=== PATIENT | female | born 2005 | race Two or more races ===

== ENCOUNTER 2025-02-13 13:19 | Emergency (ER) | payer BC, OTHER ==
[~2025-02-13] VITALS: Ht 160 cm; Wt 65.6 kg
[2025-02-13 13:24] VITALS: TEMP 98.4
[2025-02-13] MEDS ORDERED: METO-281 PO (13:52)
[2025-02-13] MEDS: METOCLOPRAMIDE HCL 10 MG TAB PO ONE (14:00)
--- NOTE | 2025-02-13 14:01 | ED.PDOC ---
GI ASSESSMENT HPI Comments This is a 19 year-old female, who is X4 months , presents to the ED with a chief complaint of nausea for X9 weeks. Patient reports severe nausea to where she cant eat a full meal at moments. Patient has no further complaints at this time and otherwise denies further associated symptoms of diarrhea, back pain, fever, chills, fatigue, or general weakness. Chief Complaint: Nausea/Vomiting Time Seen by MD: 13:40 Reviewed Notes: Nurses Notes, Medications, Allergies Allergies: Coded Allergies: NO KNOWN ALLERGIES (Unverified , 02/13/25) Home Meds Active Scripts Nitrofurantoin Monohydrate Mac (Macrobid) 100 Mg Cap, 100 MG PO BID for 6 Days, #14 CAP Prov:MERLINE PEREYRA MD 02/13/25 Metoclopramide Hcl (Reglan) 10 Mg Tab, 10 MG PO Q8HP PRN for 10 Days, #30 TAB Prov:MERLINE PEREYRA MD 02/13/25 Information Source: Patient Mode of Arrival: Ambulatory Duration: Since onset Severity: Moderate Associated sign and symptoms: Nausea, Other ( ) Past Medical History PAST MEDICAL HISTORY: Denies Surgical History: Denies all surgeries [employer] History: No Pertinent [employer] History Family History Family History: Reviewed,noncontributory to illness, No family hx of Cancer, No family hx of DM, No family hx of Heart felice, No family hx of HTN, No family hx ofKidney felice, No family hx of Liver felice, No family hx of Lung felice, No family hx of Stroke Social History Smoker: Non-Smoker Alcohol: Denies ETOH Use Drugs: Denies Drug Use Lives In: Home Constitutional: denies: chills, diaphoresis, fatigue, fever, malaise, sweats, weakness, others EENTM: denies: blurred vision, double vision, ear bleeding, ear discharge, ear drainage, ear pain, ear ringing, eye pain, eye redness, hearing loss, mouth pain, mouth swelling, nasal discharge, nose bleeding, nose congestion, nose pain, photophobia, tearing, throat pain, throat swelling, voice changes, others Respiratory: denies: cough, hemoptysis, orthopnea, SOB at rest, shortness of breath, SOB with excertion, stridor, wheezing, others Cardiovascular: denies: chest pain, dizzy spells, diaphoresis, Dyspnea on exertion, edema, irregular heart beat, left arm pain, lightheadedness, palpitations, PND, syncope, others Gastrointestinal: reports: nausea; denies: abdomen distended, abdominal pain, blood streaked bowels, constipated, diarrhea, dysphagia, difficulty swallowing, hematemesis, melena, poor appetite, poor fluid intake, rectal bleeding, rectal pain, vomiting, others Genitourinary: reports: ; denies: abnormal vagina bleeding, burning, dyspareunia, dysuria, flank pain, frequency, hematuria, incontinence, pain, vagina discharge, urgency, others Neurological: denies: dizziness, fainting, headache, left sided numbness, left sided weakness, numbness, paresthesia, pre-existing deficit, right sided numbness, right sided weakness, seizure, speech problems, tingling, tremors, weakness, others Musculoskeletal: denies: back pain, gout, joint pain, joint swelling, muscle pain, muscle stiffness, neck pain, others Integumetry: denies: bruises, change in color, change in hair/nails, dryness, laceration, lesions, lumps, rash, wounds, others Allergic/Immunocompromised: denies: Difficulty Healing, Frequent Infections, Hives, Itching, others Hematologic/Lymphatic: denies: anemia, blood clots, easy bleeding, easy bruising, swollen glands, others Endocrine: denies: excessive hunger, excessive sweating, excessive thirst, excessive urination, flushing, intolerance to cold, intolerance to heat, unexplained weight gain, unexplained weight loss, others Psychiatric: denies: anxiety, bipolar disorder, depression, hopeless, panic disorder, schizophrenia, sleepless, suicidal, others All Other Systems: Reviewed and Negative Physical Exam Exam Comments Patient is X9 weeks General Appearance: No Apparent Distress HEENT: Normal ENT Inspection, Pharynx Normal, TMs Normal Neck: Full Range of Motion, Non-Tender, Normal, Normal Inspection Respiratory: Chest Non-Tender, Lungs Clear, No Accessory Muscle Use, No Respiratory Distress, Normal Breath Sounds Cardiovascular: No Edema, No JVD, No Murmur, No Gallop, Normal Peripheral Pulses, Regular Rate/Rhythm Breast Exam: Deferred Gastrointestinal: Non Tender, No Pulsatile Mass, Normal Bowel Sounds, Other (Gravid uterus) Genitalia: Deferred Pelvic: Deferred Rectal: Deferred Extremities: No calf tenderness, Normal capillary refill, Normal inspection, Normal range of motion, Non-tender, No pedal edema Musculoskeletal : Apperance: Normal Neurologic: Alert, mold capper helper II-XII nml as Tested, No Motor Deficits, Normal Affect, Normal Mood, No Sensory Deficits Cerebellar Function: Normal Reflexes: Normal Skin: Dry, Normal Color, Warm Lymphatic: No Adenopathy Was a procedure done? Was a procedure done?: No GI differential Dx Differential Diagnosis: Constipation, Gastroenteritis, Dehydration, Electrolyte Imbalance, Food Poisoning, , Bacterial, Parasitic, Viral X-Ray, Labs, Meds, VS Vital Signs Date Time Temp Pulse Resp B/P (MAP) Pulse Ox O2 Delivery O2 Flow Rate FiO2 02/13/25 15:23 85 16 124/42 (69) 96 02/13/25 15:23 85 16 96 Ambu-Bag 02/13/25 13:24 98.4 96 16 115/54 97 98.4 Lab Test 02/13/25 13:30 Range/Units Urine Color Yellow Yellow Urine Clarity Turbid H Clear Urine pH 6.0 5.0-9.0 Urine Specific Linch 1.026 1.001-1.035 Urine Protein Trace H Negative Urine Ketones Negative Negative Urine Blood Negative Negative /uL Urine Nitrite Negative Negative Urine Bilirubin Negative Negative Urine Urobilinogen Normal Negative mg/dL Urine Leukocyte Esterase 2+ Negative /uL Urine RBC 5 0 - 4 /hpf Urine Microscopic WBC 10 H 0-5 /HPF Urine Squamous Epithelial Cells Many <5 /hpf Urine Bacteria None seen None Seen /hpf Urine Mucus Few None Seen Urine Glucose Normal Normal mg/dL Current Medications Medications (Trade) Dose Ordered Sig/Margaret Route Start Time Stop Time Status Last Admin Metoclopramide HCl (Reglan Tablet) 10 mg ONCE ONCE PO 02/13/25 14:00 02/13/25 14:01 DC 02/13/25 14:00 At this time the patient was given Reglan 10 mg p.o. The urine test is positive for UTI The patient was given a prescription of Macrobid The patient will return to the emergency department's condition worsens We did call Dr. Burkett and she is going to recommend that the patient receive Reglan as a prescription The patient will follow up with her own OBGYN. Time of 1ST Reevaluation: 15:49 Reevaluation 1ST: Improved Patient Education/Counseling: Diagnosis, Treatment, Prognosis, Need For Follow Up Family Education/Counseling: No Family Present SEPSIS Sepsis Screen Date sepsis recognized/suspect: Feb 13, 2025 Time Sepsis recognized/suspect: 1324 Recent Procedure: No On Antibiotic Therapy: No Respiratory Rate >20: No Heart Rate >90: Yes Temp<36 C (96.8 F) or >38.3 C: No SBP <90 or MAP <65 mmHG: No New Acute Mental Status Change: No Is the patient on CPAP, BIPAP,: No Vital Signs Date Time Temp Pulse Resp B/P (MAP) Pulse Ox O2 Delivery O2 Flow Rate FiO2 02/13/25 15:23 85 16 124/42 (69) 96 02/13/25 15:23 85 16 96 Ambu-Bag 02/13/25 13:24 98.4 96 16 115/54 97 98.4 Medications Medications Dose Ordered Sig/Margaret Route Start Time Stop Time Status Last Admin Dose Admin Metoclopramide HCl 10 mg ONCE ONCE PO 02/13/25 14:00 02/13/25 14:01 DC 02/13/25 14:00 Departure 1 Departure Time of Disposition: 15:49 Impression: Primary Impression: UTI in Qualified Codes: O23.40 - Unspecified infection of urinary tract in , unspecified trimester Additional Impression: Hyperemesis of Disposition: 01 HOME / SELF CARE / HOMELESS Condition: Stable e-Prescriptions Nitrofurantoin Monohydrate Mac (Macrobid) 100 Mg Cap 100 MG PO BID for 6 Days, #14 CAP Prov: MERLINE PEREYRA MD 02/13/25 Metoclopramide Hcl (Reglan) 10 Mg Tab 10 MG PO Q8HP PRN for 10 Days, #30 TAB Prov: MERLINE PEREYRA MD 02/13/25 Discharged With: Self Critical Care Note Critical Care Time?: No Stability Stability form required: No Heart Score Heart Score: Heart Score Response (Comments) Value History N/A 0 EKG N/A 0 Age N/A 0 Risk Factors N/A 0 Troponin N/A 0 Total 0 I personally scribed for MERLINE PEREYRA MD ([email or web address]) on 02/13/25 at 14:01. Electronically submitted by Ciera Alonso ([email or web address]). MERLINE PEREYRA MD Feb 13, 2025 14:01
[2025-02-13 14:31] LABS: Urine Protein, UAD TRACE (Negative)
[2025-02-13 15:23] VITALS: BP 124/42; PULSE 85; RESP 16; O2SAT 96
[2025-02-13] MEDS ORDERED: NITR-87 PO (15:41)
== END 2025-02-13 17:25 | disposition home or self-care (01) ==
LOC: ER 13:19
DX: O21.0 Mild hyperemesis gravidarum (principal); O23.41 Unspecified infection of urinary tract in pregnancy, first trimester; N39.0 Urinary tract infection, site not specified; Z3A.09 9 weeks gestation of pregnancy
CPT/HCPCS: 81001; 99283; J8597